=== PATIENT | male | born 1935 | race Caucasian/White ===

== ENCOUNTER 2016-05-03 08:55 | Day surgery (SDC) | payer MEDICARE ==
[~2016-05-03] VITALS: Ht 177.8 cm; Wt 56.8 kg
[~2016-05-03 08:55] MED LIST: ACTONEL PO; ALIGN PO; AMBI12.5 PO; CALC-179 PO; COUM4TAB7 PO; COUM5TAB PO; NITROQUICK; PRIL20CA PO; SERT-132 OR; TAMS0.4C67 PO; VITA400C28 PO; WELC625T2 PO
[2016-05-03 09:11] VITALS: BP 146/77; PULSE 80; RESP 20; TEMP 97.6; O2SAT 98
[2016-05-03] MEDS ORDERED: COLE1PAK PO (09:29)
[2016-05-03] MEDS ORDERED: PARO20TA2 PO (09:29)
[2016-05-03] MEDS ORDERED: CENTTAB PO (09:29)
[2016-05-03] MEDS ORDERED: ATOR1TAB18 PO (09:29)
[2016-05-03] MEDS ORDERED: LIDO0.1O (09:29)
[2016-05-03] MEDS ORDERED: METO25TA3 PO (09:29)
[2016-05-03] MEDS ORDERED: VITA100021 SL (09:29)
[2016-05-03] MEDS ORDERED: LISI2.5T3 PO (09:29)
[2016-05-03] MEDS ORDERED: OMEP40CA2 PO (09:29)
[2016-05-03] MEDS ORDERED: CLOP75TA PO (09:29)
[2016-05-03] MEDS ORDERED: COMFSUS2 (09:29)
[2016-05-03] MEDS ORDERED: NITR1SUB3 SL (09:29)
[2016-05-03] MEDS ORDERED: CHOL1TAB42 (09:29)
[2016-05-03 09:40] LABS: AUTOMATED NEUTROPHIL # 4.2 TH/MM3 (1.8-7.7); BASOPHIL % 0.7 % (0.0-2.0); EOSINOPHIL # 0.1 TH/MM3 (0-0.4); EOSINOPHIL % 1.1 % (0.0-4.0); HEMO FLAGS DIFF FINAL; LYMPH % 30.3 % (9.0-44.0); LYMPHOCYTE # 2.1 TH/MM3 (1.0-4.8); MEAN CELL VOLUME 95.9 FL (80.0-100.0); MEAN CORPUSCULAR HEMOGLOBIN 31.5 PG (27.0-34.0); MEAN CORPUSCULAR HGB CONC 32.8 % (32.0-36.0); MONO % 7.7 % (0.0-8.0); NEUT % 60.2 % (16.0-70.0); PLATELET COUNT 337 TH/MM3 (150-450)
[2016-05-03 09:47] LABS: APTT (PATIENT) 24.8 SEC (24.3-30.1); PROTHROMBIN TIME - PATIENT 10.8 SEC (9.8-11.6)
[2016-05-03] MEDS ORDERED: SODIUM CHLOR 0.9% 1000 ML INJ 1,000 ML IV SCH (10:45)
[2016-05-03] MEDS ORDERED: ceFAZolin 2 GM PREMIX 50 ML IV SCH (10:45)
[2016-05-03] MEDS ORDERED: MIDAZOLAM HCL 5 MG/5 ML VIAL ONE (11:21)
[2016-05-03] MEDS ORDERED: fentaNYL CITRATE 250 MCG/5 ML AMP ONE (11:21)
[2016-05-03] MEDS ORDERED: BUPIVACAINE HCL PF 0.75% 30 ML VIAL ONE (11:32)
[2016-05-03 12:25] VITALS: BP 146/89; PULSE 88; RESP 20; TEMP 97.7; O2SAT 99
--- NOTE | 2016-05-03 12:32 | PD.RAD ---
Post Procedure Progress Note Pre Procedure Diagnosis: (1) Lumbar compression fracture Post Procedure Diagnosis: (1) Lumbar compression fracture Procedure Date: May 03, 2016 Supervising Radiologist: Clifton Frey Proceduralist/Assist: Yoselin Cha RT(R), Ailyn Moody RT(R) Anesthesia: Local, Conscious Sedation Plan of Activity Patient to Unit: ROPU Patient Condition: Fair See PACS Report for procedural detail/treatment Spinal Procedure Kyphoplasty L4 Total Bone Cement (CCs): 5 Clifton Frey MD May 03, 2016 12:32
[2016-05-03 12:40] VITALS: BP 124/81; PULSE 81; RESP 18; O2SAT 98
[2016-05-03 13:10] VITALS: BP 106/62; PULSE 74; RESP 18; O2SAT 98
--- NOTE | 2016-05-03 13:36 | RADRPT ---
EXAM DATE/TIME: 05/03/2016 10:27 [facility] COMPARISON: No previous studies available for comparison. INDICATIONS : Patient with a history of L4 compression fracture. MEDICAL HISTORY : CVA Reflux Arthritis SURGICAL HISTORY : Cholecystectomy Hiatal hernia repair. ENCOUNTER: Subsequent ACUITY: 2 weeks PAIN SCORE: 6/10 LOCATION: Low back FLUORO TIME: 15.8 minutes IMAGE SERIES: 6 SEDATION TIME: 50 minutes LEVEL: L4 MEDICATION(S): 1.) 4 mg midazolam (Versed) IV 2.) 200 mcg fentanyl (Sublimaze) IV DEVICE: 1. 5 cc AVAMax bone cement PROCEDURE : 1. Fluoroscopically-guided kyphoplasty. 2. Conscious sedation with continuous EKG and oximetry monitoring. The risks, benefits and alternatives to the procedure were explained and verbal and written consent w as obtained. The site was prepped in sterile fashion. Full sterile technique was used, including ca p, mask, sterile gloves and gown and a large sterile sheet. Hand hygiene and 2% chlorhexidine and/or betadine/alcohol prep was utilized per protocol for cutaneous antisepsis. The skin and subcutaneous tissues were infiltrated with local anesthetic solution. With fluoroscopic guidance via the above described approach access was gained to the vertebral body. Kyphoplasty was performed with cavity creation as above. The prescribed cement volume was placed. Post procedure images demonstrate cement confined to the vertebral body. Conscious sedation was performed with the prescribed dosages and duration as above in the presence of an independent trained radiology nurse to assist in the monitoring of the patient. EKG and oximetry remained stable throughout the procedure. The patient tolerated the procedure well and there were n o complications. The patient was sent to post anesthesia recovery in stable condition. CONCLUSION: Uncomplicated kyphoplasty as above. Clifton Frey MD on May 03, 2016 at 13:33 Board Certified Radiologist. This report was verified electronically.
[2016-05-03 13:40] VITALS: BP 118/69; PULSE 72; RESP 16; O2SAT 97
[2016-05-03] MEDS ORDERED: oxyCODONE/ACETAMINOPHEN 5 MG/325 MG TAB PO ONE (14:15)
[2016-05-03 14:40] VITALS: BP 122/74; PULSE 76; RESP 18; O2SAT 95
== END 2016-05-03 15:00 | disposition home or self-care (01) ==
LOC: HROP 08:55 → HRIP 08:59 → HROP 15:00
PROVIDERS: ATTEND Internal Medicine
DX: S32.040A Wedge compression fracture of fourth lumbar vertebra, initial encounter for closed fracture (principal)
CPT/HCPCS: 22514; 85025; 85610; 85730; 99152; 99153; J0690; J2250; J3010; J7030

== ENCOUNTER 2016-05-10 13:13 | Day surgery (SDC) | payer MEDICARE ==
[~2016-05-10 13:13] MED LIST changes: -AMBI12.5 PO; +ATOR1TAB18 PO; -CALC-179 PO; +CENTTAB PO; +CHOL1TAB42; +CLOP75TA PO; +COLE1PAK PO; +COMFSUS2; -COUM4TAB7 PO; -COUM5TAB PO; +LIDO0.1O; +LISI2.5T3 PO; +METO25TA3 PO; +NITR1SUB3 SL; +OMEP40CA2 PO; +PARO20TA2 PO; -PRIL20CA PO; -SERT-132 OR; -TAMS0.4C67 PO; +VITA100021 SL; -VITA400C28 PO; -WELC625T2 PO
[2016-05-10 13:35] VITALS: BP 107/68; PULSE 49; RESP 18; TEMP 96; O2SAT 97
== END 2016-05-10 13:43 | disposition home or self-care (01) ==
LOC: HROP 13:13 → HRIP 13:16 → HROP 13:43
PROVIDERS: ATTEND Radiology Diagnostic Radiology
DX: S32.040A Wedge compression fracture of fourth lumbar vertebra, initial encounter for closed fracture (principal)